=== PATIENT | female | born 1995 | race Two or more races ===

== ENCOUNTER 2017-07-25 12:23 | Emergency (ER) | END 2017-07-25 12:31 | disposition left against medical advice (07) ==

== ENCOUNTER 2017-10-03 17:02 | Outpatient (CLI) | END 2017-10-03 18:56 | disposition home or self-care (01) ==

== ENCOUNTER 2017-12-07 09:18 | Outpatient (CLI) | END 2017-12-08 00:43 | disposition home or self-care (01) ==